=== PATIENT | female | born 1955 | race Caucasian/White ===

== ENCOUNTER 2020-10-04 06:27 | Emergency (ER) | payer BC ==
[~2020-10-04] VITALS: Ht 162.6 cm; Wt 72.8 kg
[2020-10-04 06:29] VITALS: BP 128/81
== END 2020-10-04 08:31 | disposition home or self-care (01) ==
LOC: ED 07:12
DX: S92.002A Unspecified fracture of left calcaneus, initial encounter for closed fracture (principal); I10 Essential (primary) hypertension; Z86.39 Personal history of other endocrine, nutritional and metabolic disease; W11.XXXA Fall on and from ladder, initial encounter; Y93.89 Activity, other specified; Y92.009 Unspecified place in unspecified non-institutional (private) residence as the place of occurrence of the external cause; Y99.8 Other external cause status
CPT/HCPCS: 99284